=== PATIENT | male | born 1975 | race Caucasian/White ===

== ENCOUNTER 2018-03-02 08:00 | Outpatient (CLI) | payer MEDICAID ==
[2018-03-02 12:32] LABS: BASOPHILS % (AUTO) 0.4 %; EOSINOPHILS # (AUTO) 0.1 10^3/uL (0.0-0.7); EOSINOPHILS % (AUTO) 1.8 %; HGB - HEMOGLOBIN 15.6 g/dL (14.0-18.0); LYMPHOCYTES # (AUTO) 2.5 10^3/uL (1.5-3.5); LYMPHOCYTES % (AUTO) 38.8 %; MEAN CORPUSCULAR HEMOGLOBIN 30.3 pg (27.0-31.0); MEAN CORPUSCULAR HGB CONC 34.5 g/dL (32.0-36.0); MEAN CORPUSCULAR VOLUME 87.7 fL (80.0-94.0); MONOCYTES # (AUTO) 0.6 10^3/uL (0.0-1.0); MONOCYTES % (AUTO) 8.5 %; NEUTROPHILS # (AUTO) 3.3 10^3/uL (1.5-6.6); NEUTROPHILS % (AUTO) 50.5 %; PLT - PLATELET COUNT 192 10^3/uL (130-450); RED BLOOD COUNT 5.14 10^6/uL (4.70-6.10); RED CELL DISTRIBUTION WIDTH 12.2 % (12.0-15.0); WHITE BLOOD COUNT 6.5 x10^3/uL (4.8-10.8)
[2018-03-02 13:22] LABS: ALBUMIN 3.9 g/dL (3.2-5.5); ALBUMIN/GLOBULIN RATIO 1.3 (1.0-2.2); ALKALINE PHOSPHATASE 72 IU/L (42-121); ALT ALANINE AMINOTRANSFERASE 26 IU/L (10-60); AST ASPARTATE AMINOTRANSFERASE 19 IU/L (10-42); BILIRUBIN,TOTAL 0.7 mg/dL (0.2-1.0); BUN - BLOOD UREA NITROGEN 17 mg/dL (6-20); CALCIUM 9.3 mg/dL (8.5-10.3); CARBON DIOXIDE - CO2 28 mmol/L (21-32); CHLORIDE 102 mmol/L (101-111); CHOL/HDL RATIO 5.1 (<5.0); CHOLESTEROL 219 mg/dL; CREATININE 0.9 mg/dL (0.6-1.2); GFR - MDRD 93 (>89); GLUCOSE 97 mg/dL (70-100); HDL CHOLESTEROL 43 mg/dL; LDL CHOLESTEROL,CALCULATED 121 mg/dL; LDL/HDL RATIO 2.8 (<3.6); SODIUM 138 mmol/L (135-145); TOTAL PROTEIN 6.9 g/dL (6.7-8.2); VLDL CHOLESTEROL 55 mg/dL
== END 2018-03-02 23:59 | disposition home or self-care (01) ==
LOC: LAB.WCP 08:00
PROVIDERS: ATTEND Physician Assistant Medical
DX: Z00.00 Encounter for general adult medical examination without abnormal findings (principal)
CPT/HCPCS: 36415; 80053; 80061; 81241; 83721; 84443; 85025

== ENCOUNTER 2018-10-19 06:16 | Day surgery (SDC) | payer MEDICAID ==
[2018-10-19] MEDS ORDERED: LACTATED RINGERS 1,000 ML IV ONE (06:28)
[2018-10-19] MEDS ORDERED: BUPIVACAINE 0.25%-EPI 1:200000 PF 30 ML VIAL ONE (07:17)
--- NOTE | 2018-10-19 07:21 | ANESTHESIA ---
Pre-Anesthesia VS, & Labs - Diagnosis Soft tissue mass, right thigh - Procedure Excise sift tissue mass, right thigh Vital Signs: Temp Pulse Resp BP Pulse Ox 36.2 C L 51 L 16 120/85 H 96 10/19/18 06:29 10/19/18 06:29 10/19/18 06:29 10/19/18 06:29 10/19/18 06:29 Height 5 ft 11 in Weight (kg) 82.6 kg - NPO >8 hours Home Medications and Allergies Home Medications: Ambulatory Orders No Known Home Medications 10/13/18 No Known Home Medications 10/13/18 Allergies/Adverse Reactions: Allergies Allergy/AdvReac Type Severity Reaction Status Date / Time No Known Drug Allergies Allergy Verified 10/19/18 06:38 Anes History & Medical History - Anesthetic History Anesthesia Complications: reports: No previous complications Family history of Anesthesia Complications: Denies Family history of Malignant Hyperthermia: Denies - Medical History Cardiovascular: reports: High cholesterol Pulmonary: reports: None Gastrointestinal: reports: None Urinary: reports: None Neuro: reports: None Musculoskeletal: reports: None Endocrine/Autoimmune: reports: None Skin: reports: None - Surgical History Eyes Ears Nose Throat (EENT): Other (Amonate tooth) Exam General: Alert, Oriented x3, Cooperative Dental: WNL Mouth Opening: Greater than 4 Fingerbreadths Neck Mobility: Normal Mallampati classification: II Thyromental Distance: greater than 6 cm Cardiovascular: Regular rate Mental/Cognitive Status: Alert/Oriented X3 Cognitive Status: Within normal limits Plan Anesthesia Type: MAC Consent for Procedure(s) Verified and Reviewed: Yes Code Status: Attempt Resuscitation ASA classification: 2-Mild systemic disease Is this case an emergency?: No
[2018-10-19] MEDS ORDERED: ONDANSETRON 4 MG/2 ML VIAL IVP ONE (07:34)
[2018-10-19] MEDS ORDERED: KETOROLAC 30 MG/ML VIAL IVP ONE (07:34)
[2018-10-19] MEDS ORDERED: DEXAMETHASONE 4 MG/ML VIAL IVP ONE (07:34)
[2018-10-19] MEDS ORDERED: MIDAZOLAM 2 MG/2 ML VIAL IVP ONE (07:34)
[2018-10-19] MEDS ORDERED: fentaNYL 100 MCG/2 ML VIAL IVP ONE (07:34)
[2018-10-19] MEDS ORDERED: PROPOFOL 200 MG/20 ML VIAL IVP ONE (07:34)
[2018-10-19] MEDS ORDERED: LIDOCAINE-MPF 2% 5 ML VIAL IM ONE (07:34)
[2018-10-19] MEDS ORDERED: LIDOCAINE-MPF 1% 30 ML VIAL ONE (08:02)
[2018-10-19] MEDS ORDERED: LIDOCAINE 1% 50 ML MDV SUBQ ONE (08:06)
[2018-10-19] MEDS ORDERED: BUPIVACAINE 0.25%-EPI 1:200000 PF 30 ML VIAL SUBQ ONE (08:08)
[2018-10-19] MEDS ORDERED: IBUPROFEN 600 MG TABLET PO PRN (08:18)
[2018-10-19] MEDS ORDERED: ONDANSETRON 4 MG/2 ML VIAL IVP PRN (08:18)
[2018-10-19] MEDS ORDERED: ACETAMINOPHEN 325 MG TABLET PO PRN (08:18)
[2018-10-19] MEDS ORDERED: oxyCODONE 5 MG TABLET PO PRN (08:18)
--- NOTE | 2018-10-19 09:02 | OPERATIVE REPORT ---
DATE OF SERVICE: 10/19/2018 Physician: Modesto Sorto MD PREOPERATIVE DIAGNOSIS: Soft tissue mass, right proximal medial thigh. POSTOPERATIVE DIAGNOSIS: Soft tissue mass, right proximal medial thigh. PROCEDURE PERFORMED: Excision of soft tissue mass, right proximal medial thigh. ANESTHESIA: Local plus monitored anesthesia care by Edward Rios CRNA. SURGEON: Modesto Sorto MD ESTIMATED BLOOD LOSS: 5 mL COMPLICATIONS: None. FINDINGS: An 8.5 x 6.5 subcutaneous mass was present with gross findings consistent with a benign li nilay. The lesion arose from the deep subcutaneous tissues, and was confined superficial to the inves ting fascia, and was well circumscribed. INDICATIONS: Patient is a 42-year-old gentleman with a history of progressively enlarging soft tissu e mass over the right proximal medial thigh. Clinical examination revealed an approximately 6 x 8 cm soft tissue mass, proximal medial right thigh, consistent with a benign soft tissue lipoma. He was advised to undergo excisional biopsy for definitive diagnosis and local therapy. TECHNIQUE: After informed consent, patient was taken to the operating room, where he was sedated and monitored. Preoperative preparation included application of sequential calf compression boots, give n his history of factor V Leiden heterozygous mutation. His right proximal medial thigh had been cli pped in the shoe, and was prepped with ChloraPrep solution and draped in the usual sterile fashion. A transverse incision was made in the skin lines of the right proximal medial thigh, overlying the ma ss, approximately 8 cm in length. Hemostasis was achieved with electrocautery. Incision was carried down through subcutaneous tissues, where the mass was identified. It was grossly completely excised with curved Metzenbaum scissors with 1-2 mm margins, and the tissue sent for pathologic evaluation. After hemostasis was ensured with electrocautery, the wound was irrigated with sterile saline, follo wing which wound closure was accomplished in layers using continuous 3-0 Vicryl reapproximating subcu taneous tissues, followed by 4-0 Monocryl subcuticular skin closure, followed by Dermabond and an Jorge bandage. Anesthesia was then terminated, and patient was transferred back to the [facility] in satisfactor y condition. Sponge and needle counts were correct x2. No drains were used. cc: Nino Trujillo MD TD: 10/19/2018 08:36
[2018-10-19 09:07] VITALS: BP 113/80
== END 2018-10-19 06:17 | disposition home or self-care (01) ==
LOC: SDS 06:16
PROVIDERS: ATTEND Internal Medicine Gastroenterology
PROC: 0JBM0ZZ Excision of Left Upper Leg Subcutaneous Tissue and Fascia, Open Approach (ICD-10-PCS; principal; 2018-10-19 07:30)
DX: D17.79 Benign lipomatous neoplasm of other sites (principal); D68.51 Activated protein C resistance
CPT/HCPCS: 11406; J7120

== ENCOUNTER 2020-09-04 08:00 | Outpatient (CLI) | payer MEDICAID ==
[2020-09-04 18:03] LABS: BASOPHILS % (AUTO) 0.6 %; EOSINOPHILS # (AUTO) 0.1 10^3/uL (0.0-0.7); EOSINOPHILS % (AUTO) 0.7 %; HCT - HEMATOCRIT 47.4 % (42.0-52.0); LYMPHOCYTES # (AUTO) 2.3 10^3/uL (1.5-3.5); LYMPHOCYTES % (AUTO) 32.9 %; MEAN CORPUSCULAR HEMOGLOBIN 30.5 pg (27.0-31.0); MEAN CORPUSCULAR HGB CONC 33.8 g/dL (32.0-36.0); MEAN CORPUSCULAR VOLUME 90.5 fL (80.0-94.0); MEAN PLATELET VOLUME 11.2 fL (7.4-11.4); MONOCYTES # (AUTO) 0.6 10^3/uL (0.0-1.0); NEUTROPHILS % (AUTO) 57.7 %; PLT - PLATELET COUNT 184 10^3/uL (130-450); RED BLOOD COUNT 5.24 10^6/uL (4.70-6.10); RED CELL DISTRIBUTION WIDTH 12.4 % (12.0-15.0); WHITE BLOOD COUNT 6.9 x10^3/uL (4.8-10.8)
[2020-09-04 18:45] LABS: BILIRUBIN,URINE NEGATIVE (NEGATIVE); GLUCOSE, URINE (UA) NEGATIVE (NEGATIVE); KETONES,URINE (UA) NEGATIVE (NEGATIVE); LEUKOCYTE ESTERASE, URINE NEGATIVE (NEGATIVE); NITRITE,URINE NEGATIVE (NEGATIVE); OCCULT BLOOD,URINE NEGATIVE (NEGATIVE); PROTEIN,URINE NEGATIVE (NEGATIVE); UROBILINOGEN,URINE 0.2 (NORMAL) E.U./dL (NORMAL)
[2020-09-04 18:54] LABS: CLARITY,URINE CLEAR (CLEAR)
[2020-09-04 19:15] LABS: AMORPHOUS SEDIMENT,UR Rare /LPF; BACTERIA,URINE Rare /HPF (None Seen); RBC,URINE 0-5 /HPF (0-5); SQUAMOUS EPITHELIAL CELL,UR RARE Squamous (<= Few); WBC,URINE 0-3 /HPF (0-3)
[2020-09-04 19:17] LABS: ALBUMIN 4.3 g/dL (3.2-5.5); ALBUMIN/GLOBULIN RATIO 1.7 (1.0-2.2); ALKALINE PHOSPHATASE 70 IU/L (42-121); ALT ALANINE AMINOTRANSFERASE 20 IU/L (10-60); AST ASPARTATE AMINOTRANSFERASE 18 IU/L (10-42); BUN - BLOOD UREA NITROGEN 18 mg/dL (6-20); CALCIUM 9.2 mg/dL (8.5-10.3); CARBON DIOXIDE - CO2 30 mmol/L (21-32); CHLORIDE 106 mmol/L (101-111); CHOL/HDL RATIO 3.9 (<5.0); CHOLESTEROL 212 mg/dL; CREATININE 0.9 mg/dL (0.6-1.2); GFR - MDRD 92 (>89); GLUCOSE 95 mg/dL (70-100); HDL CHOLESTEROL 54 mg/dL; LDL CHOLESTEROL,CALCULATED 127 mg/dL; LDL/HDL RATIO 2.4 (<3.6); POTASSIUM 4.7 mmol/L (3.5-5.0); SODIUM 142 mmol/L (135-145); TOTAL PROTEIN 6.9 g/dL (6.7-8.2); TRIGLYCERIDES 153 mg/dL; VLDL CHOLESTEROL 31 mg/dL
== END 2020-09-04 23:59 | disposition home or self-care (01) ==
LOC: LAB.WCP 08:00
PROVIDERS: ATTEND Nurse Practitioner
DX: Z01.84 Encounter for antibody response examination (principal); E78.5 Hyperlipidemia, unspecified; R53.83 Other fatigue; R06.02 Shortness of breath
CPT/HCPCS: 36415; 80053; 80061; 81001; 83721; 85025; 85379; 86769; 87086

== ENCOUNTER 2021-10-29 13:17 | Outpatient (CLI) | payer MEDICAID ==
--- NOTE | 2021-10-29 15:51 | XRAY Report ---
PROCEDURE: Foot 2 View RT INDICATIONS: R FOOT PX TECHNIQUE: 2 views of the foot were acquired. COMPARISON: None FINDINGS: Bones: No fractures or dislocations. No suspicious bony lesions. Soft tissues: No tibiotalar joint effusion. Achilles tendon appears normal. IMPRESSION: No acute fracture. No osseous lesion. If symptoms and/or clinical suspicion for pathology continue, f urther assessment with repeat plain films, or advanced imaging (e.g., CT, MRI, or bone scan) is recom mended for further assessment. Reviewed by: Isa Hawk MD on 10/29/2021 3:49 PM PDT Approved by: Isa Hwak MD on 10/29/2021 3:49 PM PDT Station ID: [id number]
== END 2021-10-29 13:18 | disposition home or self-care (01) ==
LOC: DI.N 13:17
PROVIDERS: ATTEND Nurse Practitioner
DX: M25.571 Pain in right ankle and joints of right foot (principal)